=== PATIENT | female | born 1945 | race Caucasian/White ===

== ENCOUNTER 2017-07-02 12:14 | Emergency (ER) | payer MEDICARE, OTHER ==
[2017-07-02 13:21] VITALS: BP 148/92
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
--- NOTE | 2017-07-04 09:08 | CR ---
Chest 2V HISTORY: cough sob COMPARISON: None FINDINGS: Lungs appear hyperinflated. No acute infiltrate is identified. Small calcified granulomas noted lower right chest. Cardiomediastinal silhouette is within normal limits. There is mild atherosclerotic jeet cification in the aortic arch. No vascular redistribution or pleural fluid can be seen. There is scol iosis of the upper lumbar spine convex to the right. IMPRESSION: Hyperinflation suggests a component of COPD. Degenerative changes thoracolumbar spine with lumbar sco liosis convex to the right. No acute chest abnormality is identified.
== END 2017-07-02 15:49 | disposition home or self-care (01) ==
LOC: JP.ED 12:14
DX: R06.02 Shortness of breath (principal); R11.0 Nausea; Z88.5 Allergy status to narcotic agent; Z87.81 Personal history of (healed) traumatic fracture; Z79.899 Other long term (current) drug therapy
CPT/HCPCS: 36415; 71046; 71046-26; 80048; 85025; 99283; 99284

== ENCOUNTER 2021-10-01 05:55 | Day surgery (SDC) | payer MEDICARE, OTHER ==
[2021-10-01] MEDS ORDERED: Sodium Chloride 0.9% 10 ML Syringe FLUSH PRN (06:30)
[2021-10-01 07:50] VITALS: BP 163/83; PULSE 80
== END 2021-10-01 08:00 | disposition home or self-care (01) ==
LOC: JP.SDS 05:55
PROVIDERS: ATTEND Ophthalmology
DX: H25.11 Age-related nuclear cataract, right eye (principal)
CPT/HCPCS: 66984; J3490; V2632

== ENCOUNTER 2021-10-15 06:01 | Day surgery (SDC) | payer MEDICARE ==
[2021-10-15] MEDS: Sodium Chloride 0.9% 10 ML Syringe FLUSH PRN (06:39)
[2021-10-15 08:46] VITALS: BP 156/85; PULSE 74
== END 2021-10-15 08:00 | disposition home or self-care (01) ==
LOC: JP.SDS 06:01
PROVIDERS: ATTEND Ophthalmology
DX: H25.12 Age-related nuclear cataract, left eye (principal)
CPT/HCPCS: J3490; V2632